=== PATIENT | male | born 1970 | race Hispanic/Latino ===

== ENCOUNTER 2017-06-30 05:56 | Day surgery (SDC) | payer BC ==
[2017-06-30] MEDS: Sodium Chloride 0.9% 1,000 ML IV SCH ×2 (00:15→16:45)
[2017-06-30] MEDS ORDERED: Thrombin 5000 UNITS/5 ML VIAL ONE (06:31)
[2017-06-30] MEDS ORDERED: Sodium Chloride 0.9% 10 ML ONE (06:31)
[2017-06-30] MEDS ORDERED: CEFAZOLIN/Water 2 GM/20 ML SYRINGE ONE (06:32)
[2017-06-30 06:53] LABS: PTT 30.2 SEC (22.9-36.1); Prothrombin Time 13.3 SEC (12.0-14.7)
[2017-06-30] MEDS ORDERED: Fentanyl 250 MCG/5 ML VIAL ONE (07:07)
[2017-06-30] MEDS ORDERED: Midazolam HCl 2 mg/2 ml Vial ONE (07:07)
[2017-06-30] MEDS ORDERED: Promethazine HCl 25 MG/ML VIAL ONE (07:07)
[2017-06-30] MEDS ORDERED: PHENYLEPHRINE-NS 100 MCG/ML 10 ML SYRINGE ONE (07:34)
[2017-06-30] MEDS ORDERED: Lidocaine 1% PF 5 ML VIAL ONE (07:34)
[2017-06-30] MEDS ORDERED: ePHEDrine/0.9% NaCl/PF SYRINGE 50 mg/10 ml ONE (07:34)
[2017-06-30] MEDS ORDERED: Ondansetron HCl/PF 4 MG/2 ML Vial ONE (07:34)
[2017-06-30] MEDS ORDERED: Glycopyrrolate 0.2 MG/ML 5 ML SYRINGE ONE (07:34)
[2017-06-30] MEDS ORDERED: Dexamethasone 20 MG/5 ML VIAL ONE (07:34)
[2017-06-30] MEDS ORDERED: Propofol 200 MG/20 ML VIAL ONE (07:34)
[2017-06-30] MEDS ORDERED: Acetaminophen/Codeine 30-300mg Tablet PO PRN (10:26)
[2017-06-30] MEDS ORDERED: Fleet Enema 133 ML BOT PR PRN (10:26)
[2017-06-30] MEDS ORDERED: traMADol HCl 50 MG TAB PO PRN (10:26)
[2017-06-30] MEDS ORDERED: Acetaminophen 325 MG TAB PO PRN (10:26)
[2017-06-30] MEDS ORDERED: Promethazine HCl 25 MG/ML VIAL IM PRN (10:26)
[2017-06-30] MEDS ORDERED: Morphine 2 MG/ML SYRINGE SLOW IVP PRN (10:26)
[2017-06-30] MEDS ORDERED: Milk Of Magnesia 30 ML UDCUP PO PRN (10:26)
[2017-06-30] MEDS ORDERED: Bisacodyl 10 MG SUPP PR PRN (10:26)
[2017-06-30] MEDS ORDERED: Mag-Al 1200 mg/1200 mg/30 ML UDCUP PO PRN (10:26)
[2017-06-30] MEDS ORDERED: Meperidine HCl/PF 25 MG/ML VIAL SLOW IVP PRN (10:36)
[2017-06-30] MEDS ORDERED: Ondansetron HCl/PF 4 MG/2 ML Vial IVP PRN (10:36)
[2017-06-30] MEDS ORDERED: Morphine Sulfate 2 MG/ML SYRINGE SLOW IVP PRN (10:36)
[2017-06-30] MEDS ORDERED: HYDROmorphone 2 MG/ML VIAL SLOW IVP PRN (10:36)
[2017-06-30] MEDS ORDERED: Promethazine HCl 25 MG/ML VIAL SLOW IVP PRN (10:36)
[2017-06-30] MEDS ORDERED: Fentanyl 100 MCG/2 ML VIAL ONE ×2 (10:40→10:44)
[2017-06-30] MEDS ORDERED: Labetalol HCl 100 MG/20 ML VIAL ONE (11:35)
--- NOTE | 2017-06-30 12:37 | OP ---
DATE OF PROCEDURE: 06/30/2017 OR: OR #12. WOUND TYPE: Type 1 wound. SURGEON: Sylvain Tate M.D. INSPECTOR PRECISION ASSEMBLY: Srikanth Berg PA-C. PREPROCEDURE DIAGNOSIS: Cervical stenosis with neck and arm pain with cervical radiculopathy. POSTPROCEDURE DIAGNOSES: Cervical stenosis with neck and arm pain with cervical radiculopathy. PROCEDURE: 1. Anterior C5-C6 and C6-C7 diskectomies for decompression of spinal cord and C6 and C7 nerve roots . 2. Preparation of endplates C5-C6, C6-C7 and placement of intervertebral spacer, C5-C6, C6-C7 packe d with local bone autograft obtained from same incision and allograft, C5-C6, C6-C7 for arthrodesis. 3. Anterior cervical plate and screw fixation C5, C6, C7. 4. Use of operative microscope for microdissection. PROCEDURE: After informed consent was obtained from the patient, the patient brought to OR 12. Pro per patient pause and identification was carried out. He was placed under excellent general endotra cheal anesthesia and positioned supine on the operating room table. All appropriate points were pad ded. Keeping the cervical spine in neutral position we identified the right anterior gonzalo that woul d allow for approach to the C5, C6, C7 segments. This area was sterilely cleansed, prepared, and dr josé antonio. Proper patient pause and identification was carried out. The wound was then opened with a co mbination of sharp, monopolar and blunt dissection, and proceeded lateral to the tracheoesophageal b undle and medial to the right carotid sheath. We identified the prevertebral layer of deep cervical fascia and exposed the C5, C6, C7 segments. Localization film confirmed our area of interest. Dis traction at C5-C6 then occurred. The microscope was moved in for microdissection. A diskectomy at C5-C6 was performed with excellent decompression of the common dural tube and the bilateral C6 nerve roots. The endplates were prepared and an interbody spacer was placed, packed with local bone auto graft obtained from same incision and allograft for arthrodesis and structural support. We then tur adwoa our attention to releasing the distraction at C5-C6 and distracted at C6-C7, diskectomy at C6-C7 was then performed with excellent decompression of the common dural tube and bilateral C7 nerve chata ts. We then placed interbody spacer of appropriate dimension packed with local bone autograft obtai adwoa from same incision and allograft at C6-C7. We were satisfied with our construct. The microscop e was then removed and anterior cervical plate and screw fixation at C5, C6, C7 then occurred along with final tightening. Copious irrigation occurred throughout as did maximizing hemostasis. The wo und was then closed in anatomic layers over a drain. The patient then emerged from anesthesia.
[2017-06-30 12:56] VITALS: BMI 25.8
[2017-06-30] MEDS: HYDROcodone/Acetaminophen 7.5/325 mg Tablet PO PRN ×3 (13:46→21:57)
[2017-06-30] MEDS: CEFAZOLIN/Water 2 GM/20 ML SYRINGE SLOW IVP SCH ×2 (13:47→21:26)
[2017-06-30] MEDS ORDERED: FLU VACC QS2017-18 36 mo. & older 0.5 ML SYRINGE IM ONE (21:00)
[2017-06-30] MEDS: tiZANidine HCl 4 MG TAB PO PRN (21:57)
[2017-07-01] MEDS: HYDROcodone/Acetaminophen 7.5/325 mg Tablet PO PRN ×2 (06:05→09:43)
[2017-07-01] MEDS: tiZANidine HCl 4 MG TAB PO PRN (06:05)
[2017-07-01] MEDS: CEFAZOLIN/Water 2 GM/20 ML SYRINGE SLOW IVP SCH (06:05)
[2017-07-01 08:51] VITALS: BP 128/84; TEMP 98.5
--- NOTE | 2017-07-01 08:57 | PRG ---
DATE OF SERVICE: 07/01/2017 Mr. Lara is doing well postoperative day 1 from C5-C7 ACDF. He states his upper extremities fee l much better compared to before surgery. His drain output has been 40 mL and we will remove his dr jorgensen. Neurologically, he is doing very well, went over both intra and postoperative issues and follo wup is arranged. He may be dismissed.
--- NOTE | 2017-07-03 15:52 | EKG ---
Test Reason : PREOP Blood Pressure : / mmHG Vent. Rate : 068 BPM Atrial Rate : 068 BPM P-R Int : 122 ms QRS Dur : 084 ms QT Int : 396 ms P-R-T Axes : 055 024 029 degrees QTc Int : 421 ms Normal sinus rhythm Normal ECG When compared with ECG of 21-JAN-2017 10:27, No significant change was found Confirmed by DR. Qing QUACH ([id number]) on 07/03/2017 3:51:48 PM Referred By: HERMINIA Confirmed By:DR. Qing QUACH
== END 2017-07-01 12:15 | disposition home or self-care (01) ==
LOC: SDC 05:56 → SURG B 10:24 → SDC 07-01 12:15
PROVIDERS: ATTEND Surgery
PROC: 0RG2070 Fusion of 2 or more Cervical Vertebral Joints with Autologous Tissue Substitute, Anterior Approach, Anterior Column, Open Approach (ICD-10-PCS; principal; 2017-07-01)
DX: M48.02 Spinal stenosis, cervical region (principal); M54.12 Radiculopathy, cervical region
CPT/HCPCS: 36415; 76001; 85610; 85730; 93005; 93010; 96374; A4216; C1713; J1100; J2001; J2250; J2270; J2405; J2550; J2704; J3010; J3490

== ENCOUNTER 2017-08-18 15:43 | Outpatient (CLI) | payer BC ==
--- NOTE | 2017-08-18 17:01 | RAD ---
CERVICAL SPINE FOUR VIEWS: 08/18/17 HISTORY: Neck pain. Prior surgery. FINDINGS: Anterior fixation plate is in place at the C5-6-7 levels. No perihardware lucency is visible. Metalli c markers associated with interbody fusion material are within the confines of the disc spaces at the postoperative level. Cervicothoracic junction is intact. Disc space narrowing and osteophytosis are most pronounced at the C4-5 level. IMPRESSION: Degenerative and postoperative changes of the cervical spine. POS: PAT
== END 2017-08-18 15:44 | disposition home or self-care (01) ==
LOC: TBSIIMAG 15:43
PROVIDERS: ATTEND Surgery
DX: M50.20 Other cervical disc displacement, unspecified cervical region (principal); M47.812 Spondylosis without myelopathy or radiculopathy, cervical region; Z98.890 Other specified postprocedural states
CPT/HCPCS: 72040

== ENCOUNTER 2018-04-29 17:00 | Outpatient (CLI) | payer BC | END 2018-04-29 17:01 | disposition home or self-care (01) | LOC: SLEEPLAB 17:00 | PROVIDERS: ATTEND Family Medicine | DX: G47.33 Obstructive sleep apnea (adult) (pediatric) (principal); R06.83 Snoring; R51 Headache; I10 Essential (primary) hypertension; K21.9 Gastro-esophageal reflux disease without esophagitis | CPT/HCPCS: 95806 ==

== ENCOUNTER 2018-12-03 09:02 | Outpatient (CLI) | payer BC ==
--- NOTE | 2018-12-03 09:56 | CT ---
FExam: CT cervical spine without contrast HISTORY: Radiculopathy. Neck pain. COMPARISON: None FINDINGS: No craniocervical dissociation. Appropriate alignment of the lateral masses of C1 and C2. Intact odon toid process Appropriate alignment of the facets. Soft tissue neck structures: No mass, lymphadenopathy or hematoma. No prevertebral soft tissue swelli ng. Upper mediastinum and lung apices: Unremarkable Vertebral bodies: Cervical spine vertebral body height is maintained. No fracture. Fusion hardware at C5, C6 and C7 with no evidence of perihardware lucency. Disc prosthesis at C5-C6 and C6-C7. Straightening of normal cervical lordosis may be due to cervical fusion. Limited evaluation the contents of the central spinal canal and neural foramina due to technique C2-C3: No high-grade central canal stenosis. Right neural foramen is patent. Mild left foraminal narr owing due to uncovertebral hypertrophy C3-C4: Broad-based disc osteophyte complex with mild central canal stenosis. Mild bilateral foraminal narrowing due to uncovertebral hypertrophy C4-C5: Broad-based disc osteophyte complex without significant central canal stenosis. Mild right for aminal narrowing due to uncovertebral hypertrophy C5-C6: Broad-based disc osteophyte ridge without significant central canal stenosis. Mild to moderat e bilateral foraminal narrowing due to uncovertebral hypertrophy C6-C7: Broad-based disc osteophyte ridge without significant canal stenosis. Moderate to severe righ t and moderate left foraminal narrowing due to uncovertebral hypertrophy C7-T1: No high-grade central canal stenosis or high-grade foraminal narrowing. IMPRESSION: 1. Cervical fusion with anterior fusion plate at C5, C6 and C7. No perihardware lucency. Disc prosth esis at C5-C6 and C6-C7. 2. No evidence of high-grade central canal stenosis. Multilevel neural foraminal narrowing as detail ed above. Transcribed Date/Time: 12/03/2018 10:14 AM
--- NOTE | 2018-12-03 11:32 | MRI ---
FCervical spine MRI with and without contrast: 12/03/2018 COMPARISON: None available HISTORY: Neck pain and radiculopathy TECHNIQUE: Multiplanar multisequence MR imaging of the cervical spine provided with and without contr ast FINDINGS: The sagittal STIR imaging demonstrates no focal area of osseous marrow edema. There is ante rior discectomy and fusion hardware at C5-C6/C6-7. C2-3: Mild left facet hypertrophy. No central canal or neural foraminal stenosis. C3-4: Mild disc space narrowing and anterior osteophyte formation. Mild disc bulge with partial effac ement of the ventral thecal sac and mild central canal stenosis. Mild bilateral facet and uncovertebr al osteophyte formation. Mild bilateral neural foraminal stenosis. C4-5: Disc space narrowing, disc desiccation, and anterior osteophyte formation. Mild posterior osteo phyte formation. Mild bilateral facet and uncovertebral osteophyte formation. Moderate central canal stenosis. Moderate right and mild left neural foraminal stenosis. C5-6: No significant central canal or neural foraminal stenosis. Mild posterior osteophyte and bilate ral uncovertebral osteophyte. C6-7: Bilateral uncovertebral osteophyte formation, right greater than left. Probable moderate right associated neural foraminal stenosis and mild left neural foraminal stenosis. No significant central canal stenosis C7-T1: Mild bilateral facet hypertrophy with mild bilateral neural foraminal stenosis. No significant central canal stenosis. Postcontrast imaging demonstrates no abnormal enhancement involving the contents of the thecal sac, t he intervertebral disks, or the imaged osseous structures. IMPRESSION: Multilevel postoperative and degenerative change within the cervical spine as detailed ab ove.
--- NOTE | 2018-12-03 11:49 | RAD ---
FExam: 5 views cervical spine HISTORY: Neck pain. Radiculopathy. Previous cervical fusion FINDINGS: On the open-mouth projection, lateral masses of C1 and C2 articulate appropriately. Intact odontoid process In the AP projection, mild facet hypertrophy is noted. No malalignment Predental space is normal on the lateral projection. No prevertebral soft tissue swelling Cervical fusion plate with transvertebral body screws at C5, C6 and C7. Disc prosthesis at C5-C6 and C6-C7. No perihardware lucency. Straightening of normal cervical lordosis in neutral position, presumed to be due to fusion. No malal ignment upon extension or flexion Mild degenerative change at C3-C4 and mild to moderate degenerative change at C4-C5. IMPRESSION: Cervical fusion without evidence of complication or loosening. Transcribed Date/Time: 12/03/2018 11:54 AM
--- NOTE | 2018-12-03 11:55 | MRI ---
MRI LUMBAR SPINE WITH AND WITHOUT CONTRAST: COMPARISON: 11/10/2016. HISTORY: Intervertebral disk disorder, lumbosacral. Low back pain x 4 months. Pain radiating down both legs. Weakness in both legs. TECHNIQUE: MRI of the lumbar spine is performed without and without intravenous Gadolinium administration. Mult isequential, multiplanar imaging is performed. FINDINGS: Appropriate T1 marrow signal intensity of lumbar vertebrae. Lumbar spine vertebral body height is ma intained. There is no fracture. No significant STIR hyperintensity to suggest vertebral body edema. No abnormal enhancement of the vertebral bodies. There is no abnormal enhancement within the thecal sac including the cauda equina and conus medullari s. Conus medullaris terminates at the upper aspect of L1. Symmetric signal intensity of the paraspinal muscles. Appropriate signal intensity of the visualized solid organs. A 6 mm cyst in the right renal cortex. T12-L1: No significant central canal stenosis or foraminal narrowing. L1-L2: No significant central canal stenosis or foraminal narrowing. L2-L3: No significant central canal stenosis or foraminal narrowing. L3-L4: No significant central canal stenosis or foraminal narrowing. L4-L5: No significant central canal stenosis. Neural foramen are patent. L5-S1: Mild loss of disk space height. Posterior laminectomy defects. There is a combination of di sk material and scar tissue in the left subarticular zone. Disk and scar tissue abut does not obscur e the traversing left S1 nerve root. The degree of narrowing of the left subarticular zone has incre ased since the previous examination. No significant stenosis of the thecal sac. Scar tissue does pa rtially encompass the traversing left S1 nerve root. Right subarticular zone is unremarkable. Moder ate bilateral foraminal narrowing. IMPRESSION: 1. Disk and scar tissue in the left subarticular zone causing narrowing of the left subarticular zon e. There is mass effect upon the traversing left S1 nerve root. Disk material also partially encomp asses the left S1 nerve root. 2. Moderate bilateral foraminal narrowing at L5-S1. POS: OFF
[2018-12-03] MEDS ORDERED: Gadobenate Dimeglumine 529 MG/1 ML (20ML VIAL) ONE (15:13)
== END 2018-12-03 09:03 | disposition home or self-care (01) ==
LOC: BICCT 09:02
PROVIDERS: ATTEND Surgery
DX: M51.17 Intervertebral disc disorders with radiculopathy, lumbosacral region (principal); M47.22 Other spondylosis with radiculopathy, cervical region; M48.02 Spinal stenosis, cervical region; M48.061 Spinal stenosis, lumbar region without neurogenic claudication; M48.07 Spinal stenosis, lumbosacral region; Z98.1 Arthrodesis status
CPT/HCPCS: 72050; 72125; 72156; 72158; A9577

== ENCOUNTER 2019-01-11 05:59 | Outpatient (CLI) | payer BC ==
[2019-01-11 10:40] LABS: Hemoglobin 15.4 g/dL (14.0-18.0); Mean Corpuscular HGB CONC 34.1 g/dL (32.0-36.0); Mean Corpuscular Volume 90.9 fL (78.0-98.0); Mean Platelet Volume 7.6 fL (7.4-10.4); Platelet Count 287 thou/uL (130-400); RBC Distribution Width 11.7 % (11.5-14.5); Red Blood Cell (RBC) Count 4.97 mill/uL (4.70-6.10); White Blood Cell (WBC) Count 5.4 thou/uL (4.8-10.8)
[2019-01-11 10:47] LABS: Prothrombin Time 12.8 SEC (12.0-14.7)
[2019-01-11 11:00] LABS: Anion Gap 14 mmol/L (10-20); BUN (Urea Nitrogen) 9 mg/dL (8.9-20.6); Calc. Creatinine Clearance 0 mL/min (70-130); Calcium 10.6 mg/dL (7.8-10.44); Carbon Dioxide 30 mmol/L (22-29); Chloride 98 mmol/L (98-107); Estimated GFR-MDRD Greater than 90; Glucose 111 mg/dL (70-105); Potassium 4.3 mmol/L (3.5-5.1); Sodium 138 mmol/L (136-145)
--- NOTE | 2019-01-11 16:55 | EKG ---
Test Reason : Blood Pressure : / mmHG Vent. Rate : 077 BPM Atrial Rate : 077 BPM P-R Int : 134 ms QRS Dur : 084 ms QT Int : 396 ms P-R-T Axes : 067 044 024 degrees QTc Int : 448 ms Normal sinus rhythm Normal ECG When compared with ECG of 30-JUN-2017 06:48, No significant change was found Confirmed by DR. Farshad HATHAWAY ([id number]) on 01/11/2019 4:54:53 PM Referred By: HERMINIA Confirmed By:DR. Farshad HATHAWAY
== END 2019-01-11 06:00 | disposition home or self-care (01) ==
LOC: LABBT 05:59
PROVIDERS: ATTEND Surgery
DX: Z01.818 Encounter for other preprocedural examination (principal); M48.061 Spinal stenosis, lumbar region without neurogenic claudication; M48.02 Spinal stenosis, cervical region
CPT/HCPCS: 80048; 85027; 85610; 85730; 93005; 93010

== ENCOUNTER 2019-01-18 05:59 | Day surgery (SDC) | payer BC ==
[2019-01-11 09:45] VITALS: BMI 25.0
[2019-01-18] MEDS ORDERED: Bacitracin Zinc Ointment 30 gm TUBE ONE (06:24)
[2019-01-18] MEDS ORDERED: Sodium Chloride 0.9% 10 ML ONE ×2 (06:24→06:39)
[2019-01-18] MEDS ORDERED: Thrombin 5000 UNITS/5 ML VIAL ONE (06:24)
[2019-01-18] MEDS ORDERED: Fentanyl 250 MCG/5 ML VIAL ONE (06:59)
[2019-01-18] MEDS ORDERED: Fentanyl 100 MCG/2 ML VIAL ONE ×2 (11:22→13:06)
[2019-01-18] MEDS ORDERED: PACU-Morphine 4MG/ML VIAL SLOW IVP PRN (12:00)
[2019-01-18] MEDS ORDERED: Morphine Sulfate 2 MG/ML SYRINGE SLOW IVP PRN (12:00)
[2019-01-18] MEDS ORDERED: Promethazine HCl 25 MG/ML VIAL SLOW IVP PRN (12:00)
[2019-01-18] MEDS ORDERED: Ondansetron HCl/PF 4 MG/2 ML Vial IVP PRN (12:00)
[2019-01-18] MEDS ORDERED: Promethazine HCl 25 MG/ML VIAL IM PRN (12:00)
[2019-01-18] MEDS ORDERED: Meperidine HCl/PF 25 MG/ML VIAL SLOW IVP PRN (12:00)
[2019-01-18] MEDS ORDERED: HYDROmorphone 2 MG/ML VIAL SLOW IVP PRN (12:00)
[2019-01-18] MEDS ORDERED: Promethazine HCl 25 MG/ML VIAL IM/IV PRN (12:33)
[2019-01-18] MEDS ORDERED: Acetaminophen/Codeine 30-300mg Tablet PO PRN (12:33)
[2019-01-18] MEDS ORDERED: Acetaminophen 325 MG TAB PO PRN (12:33)
[2019-01-18] MEDS ORDERED: Fleet Enema 133 ML BOT PR PRN (12:33)
[2019-01-18] MEDS ORDERED: Milk Of Magnesia 30 ML UDCUP PO PRN (12:33)
[2019-01-18] MEDS ORDERED: Mag-Al 1200 mg/1200 mg/30 ML UDCUP PO PRN (12:33)
[2019-01-18] MEDS ORDERED: traMADol HCl 50 MG TAB PO PRN (12:33)
[2019-01-18] MEDS ORDERED: Bisacodyl 10 MG SUPP PR PRN (12:33)
[2019-01-18] MEDS ORDERED: PHENYLEPHRINE-NS 100 MCG/ML 10 ML SYRINGE ONE (14:09)
[2019-01-18] MEDS ORDERED: PROPOFOL 200 MG/20 ML VIAL ONE (14:09)
[2019-01-18] MEDS ORDERED: Metoclopramide HCl 10 MG/2 ML VIAL ONE (14:09)
[2019-01-18] MEDS ORDERED: Rocuronium Bromide 10 MG/ML (10ML VIAL) ONE (14:09)
[2019-01-18] MEDS ORDERED: Ondansetron PF 4 MG/2 ML Vial ONE (14:09)
[2019-01-18] MEDS ORDERED: Lidocaine 1% PF 5 ML VIAL ONE (14:09)
[2019-01-18] MEDS ORDERED: Dexamethasone 20 MG/5 ML VIAL ONE (14:09)
[2019-01-18] MEDS ORDERED: Glycopyrrolate 0.2 MG/ML 5 ML SYRINGE ONE (14:09)
[2019-01-18] MEDS ORDERED: CEFAZOLIN 2 GM in Premix Bag 1 BAG IVPB SCH (15:00)
[2019-01-18] MEDS: Morphine 2 MG/ML SYRINGE SLOW IVP PRN ×3 (15:06→22:12)
[2019-01-18] MEDS: tiZANidine HCl 4 MG TAB PO PRN ×2 (16:31→22:12)
[2019-01-18] MEDS: Sodium Chloride 0.9% 1,000 ML IV SCH (16:34)
[2019-01-18] MEDS: HYDROcodone/Acetaminophen 7.5/325 mg Tablet PO PRN (19:36)
[2019-01-18] MEDS: CEFAZOLIN 2 GM in Premix Bag 1 BAG IVPB SCH (22:12)
[2019-01-19] MEDS: Sodium Chloride 0.9% 1,000 ML IV SCH (04:50)
[2019-01-19] MEDS: CEFAZOLIN 2 GM in Premix Bag 1 BAG IVPB SCH (05:08)
[2019-01-19] MEDS: HYDROcodone/Acetaminophen 7.5/325 mg Tablet PO PRN ×2 (05:16→10:07)
[2019-01-19 07:45] VITALS: BP 136/78; TEMP 99.3
[2019-01-19] MEDS ORDERED: DULoxetine 60 MG CAP PO SCH (09:00)
--- NOTE | 2019-01-19 09:58 | PRG ---
DATE OF SERVICE: 01/19/2019 Mr. Lara is postoperative day 1 from cervical and lumbar decompression. He notices that his right upper extremity and bilateral lower extremity pain has significantly improved compared to before surgery. He still has significant weakness in the right second digit extensor mechanism. However, he feels already that it is perhaps improved. We will continue to work on this on an outpatient basis. He may be dismissed, and we went over do's and don'ts. Job ID: [id number]
[2019-01-19] MEDS: tiZANidine HCl 4 MG TAB PO PRN (10:07)
--- NOTE | 2019-01-19 10:39 | OP ---
DATE OF PROCEDURE: 01/18/2019 LOCATION: OR 12. WOUND CLASSIFICATION: Type 1 wound. REFRACTORY WORKER: Srikanth Berg PA-C PREPROCEDURE DIAGNOSES: Right C8 radiculopathy with stenosis, right C8 neuroforamen with prior history of C5 through C7 anterior diskectomy and fusion, bilateral S1 left greater than right radiculopathy with recurrent lumbar stenosis and disk extrusion left greater than right, history of L5-S1 surgery with low back and left greater than right lower extremity pain. POSTPROCEDURE DIAGNOSES: Right C8 radiculopathy with stenosis, right C8 neuroforamen with prior history of C5 through C7 anterior diskectomy and fusion, bilateral S1 left greater than right radiculopathy with recurrent lumbar stenosis and disk extrusion, left greater than right, history of L5-S1 surgery with low back and left greater than right lower extremity pain. PROCEDURES PERFORMED: 1. Right C7-T1 hemilaminotomy and foraminotomy over the right C8 nerve root for decompression of the right C8 nerve root with exploration of disk material. 2. Bilateral revision L5-S1 hemilaminotomy and foraminotomy with left-sided L5-S1 revision diskectomy. 3. Use of operative microscope for microdissection. DESCRIPTION OF PROCEDURE: After informed consent was obtained from the patient, the patient was brought to the OR. Proper patient, pause, and identification were carried out. He was placed under excellent endotracheal anesthesia and the Quintero Wero was secured. He was positioned prone on the OR table. All appropriate points were padded. We identified the C7-T1 segment. A linear gonzalo was made over this region. This area was sterilely cleansed, prepared, and draped along with the prior L5-S1 wound was identified, drawn out and sterilely cleansed, prepared, and draped. Proper patient, pause, and identification were carried out in one general anesthesia procedure. I would perform two-stage right C7-T1 hemilaminotomy, foraminotomy of the right C8 nerve root, and bilateral L5-S1 hemilaminotomy and foraminotomies with left-sided diskectomy with the use of the operative microscope. We started with the right C7-T1 segment. We proceeded with dissection utilizing sharp monopolar and blunt dissection and proceeded to expose the right C7-T1 segment. Retractor was placed. Localization film confirmed our area of interest, we then performed a right C8 foraminotomy and right C7-T1 hemilaminotomy with good decompression of the right C8 nerve root. I did explore the disk space material and there was no extruded disk fragment that needed to be removed. We had excellent decompression of the right C8 nerve root. There were certainly areas of erythema over the right C8 nerve root that indicated to me significant compression and following removing all of the compression in this region, the root certainly appeared to be more anatomic in its configuration and not has attenuated. We copiously irrigated this region and the wound was then hemostased. We then turned our attention to the L5-S1 revision area. The wound was opened through the prior incision and we proceeded to expose the bilateral L5-S1 prior hemilaminotomy regions. Localization film confirmed area of interest. We then did revision bilateral hemilaminotomies at L5-S1 and proceeded over the traversing left S1 nerve root shoulder and removed disk material. There was quite exuberant scar tissue bilaterally. We had excellent decompression of the bilateral L5 and bilateral S1 segments and copious irrigation then occurred following excellent decompression of the bilateral S1 nerve roots. There was no spinal fluid leak. We were satisfied with our decompression. Hemostasis was maximized. The wound was then closed in the lumbar region following copious irrigation and maximally hemostasis and vancomycin powder and we also closed the cervical wound following maximal hemostasis and irrigation. The patient was then emerged from anesthesia. Job ID: [id number]
== END 2019-01-19 12:15 | disposition home or self-care (01) ==
LOC: SDC 05:59 → SURG A 12:33 → SDC 01-19 12:15
PROVIDERS: ATTEND Surgery
PROC: 0RT30ZZ Resection of Cervical Vertebral Disc, Open Approach (ICD-10-PCS; principal; 2019-01-19)
PROC: 0ST20ZZ Resection of Lumbar Vertebral Disc, Open Approach (ICD-10-PCS; principal; 2019-01-19)
DX: M48.061 Spinal stenosis, lumbar region without neurogenic claudication (principal); M48.02 Spinal stenosis, cervical region; M54.12 Radiculopathy, cervical region; M54.18 Radiculopathy, sacral and sacrococcygeal region
CPT/HCPCS: 76000; J0131; J0690; J1100; J2001; J2270; J2405; J2704; J2765; J3010; J3370; J3490

== ENCOUNTER 2019-04-15 10:05 | Outpatient (CLI) | payer BC ==
[~2019-04-15 10:05] MED LIST: Gadobenate Dimeglumine 529 MG/1 ML (20ML VIAL) ONE
--- NOTE | 2019-04-15 15:09 | MRI ---
MRI CERVICAL SPINE WITH AND WITHOUT CONTRAST: 04/15/19 INDICATIONS: Cervical radiculopathy. Comparison made to MRI cervical spine dated 12/03/18. Postoperative changes are again noted. Anterior plate and screws transfix C5, C6 and C7 with interbod y implants at these levels and interbody fusion. These postoperative changes were present on the prio r exam. Loss of disc space and posterior spondylosis is noted at C3-4 and C4-5, similar to the prior exam. Th tanisha changes impinge on the anterior cord at both of these levels and there is foraminal stenosis at t hese levels due to facet and uncinate hypertrophy as noted on prior exam. Mild spondylosis throughout the fused cervical spine from C5 through C7; however, no significant cord impingement at these levels. There is a new finding seen posteriorly on the right at C7-T1 which appears to represent new laminect eric change on the right and enhancement and signal abnormality in the posterior paraspinous musculatu re and extending into the subcutaneous tissues to the skin. These changes would suggest recent surgi pablo procedure at this location. There are diffuse enhancement in the posterior tissues on the right e xtending from the C5 level through the T1 level. The cervical cord signal is normal with no evidence of myelomalacia. IMPRESSION: 1. There are new findings posteriorly on the right which appear to be localized at C7-T1 and sug gests recent surgical procedure with edema and enhancement within the paraspinous tissues and subcuta neous tissues extending to the skin surface as described above. Recommend clinical correlation regard ing recent surgical procedure at this location. 2. The spondylitic changes at C3-4 and C4-5 do not appear significantly changed. The postoperati ve fusion changes at C5,C6 and C7 appear stable as described above. POS: TPC
--- NOTE | 2019-04-15 16:02 | MRI ---
MRI OF THE CHEST WITH AND WITHOUT CONTRAST: 04/15/19 INDICATION: Right sided brachial plexopathy and right upper extremity pain. The patient is having right index fin sundeep and little finger numbness with neck pain and shoulder pain. TECHNIQUE: Multiplanar and multisequence MR images were obtained in the chest with and without contrast utilizin g a brachial plexopathy protocol. 14 mL of Multihance was utilized for the examination. FINDINGS: No signal abnormality or abnormal enhancement is seen along the course of the brachial plexus. No lym phadenopathy or right apical lung mass is demonstrated. There is postsurgical change of an ACDF at C5 -C7. There is also postsurgical changes involving the right posterolateral aspect of the cervicothora cic junction near the C7 level. There is also postsurgical change involving the right shoulder consis tent with a right biceps tenodesis. No muscular atrophy is evident. No lymphadenopathy is noted. IMPRESSION: Normal exam. POS: OFF
== END 2019-04-15 10:06 | disposition home or self-care (01) ==
LOC: SCSMRI 10:05
PROVIDERS: ATTEND Specialist
DX: G54.0 Brachial plexus disorders (principal); M47.22 Other spondylosis with radiculopathy, cervical region; Z98.1 Arthrodesis status
CPT/HCPCS: 71552; 72156

== ENCOUNTER 2019-05-11 13:38 | Inpatient (IN) | payer BC ==
[2019-05-11] MEDS ORDERED: traMADol HCl 50 MG TAB PO PRN (15:45)
[2019-05-11] MEDS ORDERED: Acetaminophen 325 MG TAB PO PRN (15:45)
[2019-05-11 15:59] VITALS: BMI 25.9
[2019-05-11] MEDS: HYDROcodone/Acetaminophen 5/325 mg Tablet PO PRN (16:35)
[2019-05-11 16:41] LABS: #Eosinphils 0.1 thou/uL (0.0-0.7); #Lymphocytes 2.4 thou/uL (1.20-3.40); #Monocytes 0.7 thou/uL (0.11-0.59); %Basophils 0.4 % (0.0-1.0); %Eosinophils 1.2 % (0.0-10.0); %Lymphocytes 33.2 % (21.0-51.0); %Monocytes 9.1 % (0.0-10.0); Hemoglobin 14.5 g/dL (14.0-18.0); Mean Corpuscular HGB CONC 33.3 g/dL (32.0-36.0); Mean Corpuscular Hemoglobin 29.8 pg (27.0-31.0); Mean Corpuscular Volume 89.5 fL (78.0-98.0); Platelet Count 354 thou/uL (130-400); RBC Distribution Width 12.1 % (11.5-14.5); Red Blood Cell (RBC) Count 4.86 mill/uL (4.70-6.10); White Blood Cell (WBC) Count 7.1 thou/uL (4.8-10.8)
[2019-05-11 16:48] LABS: PTT 30.4 SEC (22.9-36.1); Prothrombin Time 12.7 SEC (12.0-14.7)
[2019-05-11 17:02] LABS: Anion Gap 16 mmol/L (10-20); BUN (Urea Nitrogen) 13 mg/dL (8.9-20.6); Calc. Creatinine Clearance 129 mL/min (70-130); Calcium 9.8 mg/dL (7.8-10.44); Carbon Dioxide 22 mmol/L (22-29); Chloride 104 mmol/L (98-107); Estimated GFR-MDRD Greater than 90; Glucose 103 mg/dL (70-105); Potassium 3.8 mmol/L (3.5-5.1); Sodium 138 mmol/L (136-145)
[2019-05-11] MEDS: Sodium Chloride 0.9% 1,000 ML IV SCH (18:27)
[2019-05-12] MEDS ORDERED: Sodium Chloride 0.9% 10 ML ONE (06:33)
[2019-05-12] MEDS ORDERED: Thrombin 5000 UNITS/5 ML VIAL ONE (06:33)
[2019-05-12] MEDS ORDERED: Gelfilm 1 EA Packet ONE (06:33)
[2019-05-12] MEDS ORDERED: Bacitracin Zinc Ointment 30 gm TUBE ONE (06:39)
[2019-05-12] MEDS ORDERED: Fentanyl 100 MCG/2 ML VIAL ONE ×4 (07:06→14:42)
[2019-05-12] MEDS ORDERED: HYDROmorphone 2 MG/ML VIAL ONE ×2 (08:28→12:22)
[2019-05-12] MEDS ORDERED: ePHEDrine 50 MG/ML VIAL ONE (13:40)
[2019-05-12] MEDS ORDERED: Vecuronium 10 MG VIAL ONE (13:40)
[2019-05-12] MEDS ORDERED: Ondansetron PF 4 MG/2 ML Vial ONE (13:40)
[2019-05-12] MEDS ORDERED: Rocuronium Bromide 10 MG/ML (10ML VIAL) ONE (13:40)
[2019-05-12] MEDS ORDERED: PHENYLEPHRINE-NS 100 MCG/ML 10 ML SYRINGE ONE (13:40)
[2019-05-12] MEDS ORDERED: Lidocaine 1% PF 5 ML VIAL ONE (13:40)
[2019-05-12] MEDS ORDERED: Glycopyrrolate 0.2 MG/ML 5 ML SYRINGE ONE (13:40)
[2019-05-12] MEDS ORDERED: PROPOFOL 200 MG/20 ML VIAL ONE (13:40)
[2019-05-12] MEDS ORDERED: Dexamethasone 20 MG/5 ML VIAL ONE (13:40)
[2019-05-12] MEDS ORDERED: Morphine Sulfate 2 MG/ML SYRINGE SLOW IVP PRN (13:41)
[2019-05-12] MEDS ORDERED: HYDROmorphone 2 MG/ML VIAL SLOW IVP PRN (13:41)
[2019-05-12] MEDS ORDERED: Promethazine HCl 25 MG/ML VIAL SLOW IVP PRN (13:41)
[2019-05-12] MEDS ORDERED: Meperidine HCl/PF 25 MG/ML VIAL SLOW IVP PRN (13:41)
[2019-05-12] MEDS ORDERED: Promethazine HCl 25 MG/ML VIAL IM PRN (13:41)
[2019-05-12] MEDS ORDERED: Ondansetron HCl/PF 4 MG/2 ML Vial IVP PRN (13:41)
[2019-05-12] MEDS ORDERED: PACU-Morphine 4MG/ML VIAL SLOW IVP PRN (13:41)
[2019-05-12] MEDS ORDERED: Acetaminophen 1,000 MG in Premix Bag 1 BAG IVPB SCH (13:45)
[2019-05-12] MEDS ORDERED: Meperidine HCl/PF 25 MG/ML VIAL ONE (13:53)
[2019-05-12] MEDS ORDERED: tiZANidine HCl 4 MG TAB ONE (14:22)
[2019-05-12] MEDS: Ondansetron PF 4 MG/2 ML Vial SLOW IVP PRN ×2 (15:35→21:03)
[2019-05-12] MEDS: CEFAZOLIN 2 GM in Premix Bag 1 BAG IVPB SCH ×2 (15:38→23:47)
[2019-05-12] MEDS: Sodium Chloride 0.9% 1,000 ML IV SCH (15:40)
[2019-05-12] MEDS: tiZANidine HCl 4 MG TAB PO PRN (17:00)
[2019-05-12] MEDS: Morphine 2 MG/ML SYRINGE SLOW IVP PRN ×3 (17:00→23:46)
--- NOTE | 2019-05-12 17:06 | EKG ---
Test Reason : Blood Pressure : / mmHG Vent. Rate : 071 BPM Atrial Rate : 071 BPM P-R Int : 128 ms QRS Dur : 086 ms QT Int : 406 ms P-R-T Axes : 050 001 026 degrees QTc Int : 441 ms Normal sinus rhythm Possible Inferior infarct , age undetermined Abnormal ECG When compared with ECG of 11-JAN-2019 10:03, No significant change was found Confirmed by DR. Farshad HATHAWAY (3) on 05/12/2019 5:05:47 PM Referred By: CHAN Confirmed By:DR. Farshad HATHAWAY
[2019-05-12] MEDS: HYDROcodone/Acetaminophen 5/325 mg Tablet PO PRN (22:38)
[2019-05-13] MEDS: tiZANidine HCl 4 MG TAB PO PRN ×2 (01:05→09:24)
[2019-05-13] MEDS: Morphine 2 MG/ML SYRINGE SLOW IVP PRN ×2 (04:00→09:23)
[2019-05-13] MEDS: HYDROcodone/Acetaminophen 5/325 mg Tablet PO PRN (05:22)
[2019-05-13] MEDS: CEFAZOLIN 2 GM in Premix Bag 1 BAG IVPB SCH (08:02)
[2019-05-13 08:10] VITALS: BP 133/84; TEMP 98.7
[2019-05-13] MEDS ORDERED: DULoxetine 60 MG CAP PO SCH (09:00)
--- NOTE | 2019-05-13 10:13 | PRG ---
DATE OF SERVICE: 05/13/2019 Mr. Lara is postoperative day #1 from C5-T2 instrumented fusion and complete facetectomy of the right C6-C7 and right C7-T1 facet complexes and removal of the right C7 pedicle with complete skeletonization of the right C7 and right C8 nerve roots. I also assessed the fusion status posteriorly at C5-C7 as he had a prior anterior surgery with me. This morning, he has had resolution in his right C7 and right C8 pain and paresthesias. He has even had some improvement in his hand intrinsic function with opposition, but remains still quite weak. However, I am very optimistic about his prognosis. We will plan to dismiss him as he has met criteria. I am very optimistic again and pleased. Job ID: [id number]
--- NOTE | 2019-05-13 12:50 | OP ---
DATE OF PROCEDURE: 05/12/2019 LEAD SETTER: Srikanth Berg PA-C PREPROCEDURE DIAGNOSES: Persistent sensory and motor right C7 and right C8 radiculopathy with increased neck and right arm pain and right C7 and C8 myotomal weakness, need for amish of neurologic function and improvement of pain. POSTPROCEDURE DIAGNOSES: Persistent sensory and motor right C7 and right C8 radiculopathy with increased neck and right arm pain and right C7 and C8 myotomal weakness, need for amish of neurologic function and improvement of pain. PROCEDURES PERFORMED: 1. Right C6-C7 hemilaminotomy, complete facetectomy with skeletonization of the right C7 nerve root and removal of the right C7 pedicle. 2. Revision right C7-T1 hemilaminotomy, complete facetectomy, and further complete removal of the right C7 pedicle and skeletonization of the right C8 nerve root. 3. Assessment of fusion posteriorly, C5, C6, and C7. 4. Placement of screw junior fixation, bilateral C5, left C6, left C7, bilateral T1, bilateral T2 with screw junior fixation. 5. Posterolateral arthrodesis, C5, C6, C7, T1, and T2 for augmentation of fusion process and stabilization. DESCRIPTION OF PROCEDURE: After informed consent was obtained from the patient, the patient was brought to the OR. Proper patient, pause, and identification were carried out. He was placed under excellent general endotracheal anesthesia and the Quintero Wero was secured to his head. He was kept in cervical neutrality and positioned prone on the OR table and all appropriate points were padded. We identified the prior midline cervical hemilaminotomy wound from his prior right C7-T1 decompression and this wound was extended cephalad and caudal following sterile cleansing, preparation and draping, and proper patient, pause, and identification again. The wound was then again continued open and the bilateral C5, bilateral C6, bilateral C7, bilateral T1, and bilateral T2 segments were all exposed in their entirety including out into the lateral masses and transverse processes. We identified the prior right C7-T1 hemilaminotomy, keyhole foraminotomy defect in this area was protected. We then did complete facetectomies on the right side at C6-C7 via hemilaminotomy right C6-C7 approach and complete removal of the right C7 pedicle. We did the same thing at the right C7-T1 in a revision hemilaminotomy fashion with complete removal of the joint at the right C7-T1, exposure of the right T1 pedicle and further removal of the right C7 pedicle. We completely skeletonized the right C8 nerve root and removed exuberant scar tissue. I then placed bilateral screws at C5, the left C6, left C7, bilateral T1, and bilateral T2 using gross and fluoroscopic visualization of the anatomy. Rods were placed and final tightening occurred. I had assessed the C5 to C7 segments to assess for fusion as well posteriorly as the patient had a prior construct anteriorly. It did not appear as if he had developed fusion mass posteriorly, but I did not assess for any abnormal movement and as such, I suspected that he had fused at least anteriorly based on CT. Copious irrigation occurred throughout as did maximizing hemostasis. The posterolateral gutters at C5-C6 on the right and T1-T2 on the right were decorticated and arthrodesis was performed with local bone autograft obtained with same incision and allograft. We then did the same thing at C5, C6, C7, T1, and T2 on the left side. The posterolateral arthrodesis and placement of local bone autograft obtained from same incision and allograft to initiate arthrodesis posteriorly. Meticulous hemostasis occurred. The wound was then closed in anatomic layers following copious irrigation of sprinkling of vancomycin powder. The patient was then emerged from anesthesia. Job ID: [id number]
--- NOTE | 2019-05-16 11:31 | DIS ---
DATE OF ADMISSION: 05/11/2019 DATE OF DISCHARGE: 05/13/2019 This is Srikanth Berg PA-C dictating a report for Sylvain Tate MD. DISCHARGE DIAGNOSIS: Right hand weakness with cervical spinal stenosis. PLAN: Mr. Lara was direct admitted from our office to emergently undergo decompression posteriorly for cervical spinal stenosis and progressive worsening right hand weakness. The patient underwent right C6-C7 hemilaminotomy and right revision C7-T1 hemilaminotomy, foraminotomy with fusion of C5-T1. The patient's surgery was without complication and he recovered well overnight on the surgical floor. The patient noted immediate improvement in his right hand weakness, although he still had weakness in the right hand. This was significantly improved compared to his preoperative exam. The patient was very pleased with his outcome and met criteria for discharge and he was discharged home. Appropriate patient education and outpatient followups were provided to the patient and again at the time of discharge, he was doing well neurosurgically with improvement in his hand strength. Job ID: [id number]
== END 2019-05-13 11:50 | disposition home or self-care (01) | DRG 460 ==
LOC: SURG A 15:13
PROVIDERS: ADMIT Surgery; ATTEND Surgery
PROC: 0RG2071 Fusion of 2 or more Cervical Vertebral Joints with Autologous Tissue Substitute, Posterior Approach, Posterior Column, Open Approach (ICD-10-PCS; principal; 2019-05-12)
PROC: 0RG4071 Fusion of Cervicothoracic Vertebral Joint with Autologous Tissue Substitute, Posterior Approach, Posterior Column, Open Approach (ICD-10-PCS; 2019-05-12)
PROC: 0RG6071 Fusion of Thoracic Vertebral Joint with Autologous Tissue Substitute, Posterior Approach, Posterior Column, Open Approach (ICD-10-PCS; 2019-05-12)
DX: M48.02 Spinal stenosis, cervical region (principal); M54.12 Radiculopathy, cervical region; M62.81 Muscle weakness (generalized)
CPT/HCPCS: 36415; 76000; 80048; 85025; 85610; 85730; 93005; 93010; C1713; J0131; J0690; J1100; J1170; J2001; J2175; J2270; J2405; J2704; J3010; J3370; J3490; L0174

== ENCOUNTER 2019-07-20 12:51 | Outpatient (CLI) | payer BC ==
--- NOTE | 2019-07-20 13:15 | RAD ---
XR Cerv Sp Ap Lat STANDARD: 07/20/2019 12:00 AM CLINICAL INDICATION: Pain COMPARISON: 08/18/17 FINDINGS: No acute fracture. Anterior and posterior fusion of the cervical spine present, with ACDF spanning C5 -C7, and posterior fusion spanning C5-T2 level. Disc space prostheses are present at C5-6 and C6-7. No acute hardware complication identified. No significant subluxation. There is moderate degenerative change involving endplates cephalad to the sites of fusion, involving C3-4 and C4-5 levels. Multilevel facet osteoarthritis is present. IMPRESSION: Postoperative cervicothoracic spine, without acute hardware complication identified.
== END 2019-07-20 12:52 | disposition home or self-care (01) ==
LOC: TBSIIMAG 12:51
PROVIDERS: ATTEND Surgery
DX: M54.2 Cervicalgia (principal); Z98.890 Other specified postprocedural states
CPT/HCPCS: 72040

== ENCOUNTER 2020-05-21 14:32 | Outpatient (CLI) | payer BC ==
--- NOTE | 2020-05-21 15:19 | RAD ---
EXAM: XR Cervical Spine 4 View Min PROVIDED CLINICAL HISTORY: Cervical pain. History of prior surgery. Numbness right hand. COMPARISON: 12/03/2018 FINDINGS: Postoperative changes related to anterior cervical fusion are again noted with anterior plate and scr ews again transfixing the C5-6 and C6-7 levels with intradiscal prostheses at these levels. There has been interval postoperative changes related to posterior fusion with bipedicular screws in the C5 , T1, and T2 vertebral bodies and unilateral left-sided pedicular screws in C6 and C7 transfixed by interlocking rods. No hardware complication is seen. Laminectomy defects are seen posteriorly at the C4-5 and C5-C6 levels. There are osteophytes seen anteriorly at the C3-4 and C4-5 levels with narrowing of the intervertebra l disc spaces at these levels. Trace anterolisthesis of C7 on T1 is present. No fracture is identified. No abnormal translational motion is seen between flexion and extension views. Prevertebral soft tissues have a normal appearance. Calcified granuloma is again seen in the left mary g apex. IMPRESSION: 1. Extensive postoperative changes cervical spine in addition to degenerative changes in the upper ce rvical spine. 2. Slight anterolisthesis of C7 on T1.
--- NOTE | 2020-05-21 15:39 | RAD ---
LUMBAR SPINE 4 VIEWS: HISTORY: Low back pain. COMPARISON: 09/03/2015. FINDINGS/IMPRESSION: Mild degenerative changes are again seen most prominent at L5-S1 level. No change in alignment as no thai on flexion or extension. There are vacuum disk phenomenon as noted at L5-S1 which was not defini tely seen on the previous exam. POS: OFF
== END 2020-05-21 14:33 | disposition home or self-care (01) ==
LOC: BICRAD 14:32
PROVIDERS: ATTEND Nurse Practitioner Family
DX: M54.16 Radiculopathy, lumbar region (principal); M54.2 Cervicalgia; M47.817 Spondylosis without myelopathy or radiculopathy, lumbosacral region; M47.812 Spondylosis without myelopathy or radiculopathy, cervical region; M43.13 Spondylolisthesis, cervicothoracic region; Z98.1 Arthrodesis status
CPT/HCPCS: 72050; 72110

== ENCOUNTER 2020-07-31 07:00 | Outpatient (CLI) | payer BC ==
[2020-07-31 14:53] LABS: #Eosinphils 0.1 10x3/uL (0.0-0.5); #Monocytes 0.7 10x3/uL (0.0-1.1); #Neutrophils 3.6 10x3/uL (1.5-8.4); %Basophils 0.6 % (0.0-2.0); %Eosinophils 1.7 % (0.0-6.0); %Lymphocytes 36.4 % (18.0-47.0); %Neutrophils 50.6 % (40.0-75.0); Hemoglobin 15.3 g/dL (14.0-18.0); Mean Corpuscular HGB CONC 33.8 G/DL (32.0-36.0); Mean Corpuscular Hemoglobin 31.2 PG (27.0-33.0); Mean Corpuscular Volume 92.1 fl (80.0-100.0); Mean Platelet Volume 9.9 fl (7.4-10.4); Platelet Count 270 10x3/uL (130-400); RBC Distribution Width 13.2 % (11.5-14.5); Red Blood Cell (RBC) Count 4.91 10x6/uL (4.40-5.80); White Blood Cell (WBC) Count 7.1 10x3/uL (4.5-11.0)
[2020-07-31 15:34] LABS: Bilirubin Neg (Negative); Blood, Urine 10 (Negative); Glucose, Urine (Dipstick) Normal (Negative); Ketone, Urine 5 mg/dL (Negative); Leukocyte 25 (Negative); Nitrite Negative (Negative); Protein, Urine (Dipstick) 15 mg/dl (Neg-Trace); Specific Gravity, Urine 1.005 (1.002-1.036)
[2020-07-31 15:53] LABS: Clarity Hazy (Clear)
[2020-07-31 15:55] LABS: Bacteria/HPF None Seen HPF (None Seen); RBC/HPF 0-3 HPF (0-3); Squamous Epithelial None Seen HPF (0-3); WBC/HPF 0-3 HPF (0-3)
[2020-08-01 03:03] LABS: SARS-CoV-2 MS2 Positive; SARS-CoV-2 N Gene Negative; SARS-CoV-2 S Gene Negative; SARS-CoV-2 by NAA Not Detected (NotDetected); SARS-CoV-2 orf1ab Negative
== END 2020-07-31 07:01 | disposition home or self-care (01) ==
LOC: LABBT 07:00
PROVIDERS: ATTEND Orthopaedic Surgery Hand Surgery
DX: Z01.812 Encounter for preprocedural laboratory examination (principal); S56.411A Strain of extensor muscle, fascia and tendon of right index finger at forearm level, initial encounter; G56.31 Lesion of radial nerve, right upper limb; Z20.828 Contact with and (suspected) exposure to other viral communicable diseases
CPT/HCPCS: 81001; 85025; 87635; U0003

== ENCOUNTER 2020-08-03 05:37 | Day surgery (SDC) | payer BC ==
[2020-08-02 11:43] VITALS: BMI 25.0
[2020-08-03] MEDS ORDERED: Midazolam HCl 2 mg/2 ml Vial ONE (06:19)
[2020-08-03] MEDS ORDERED: Fentanyl 100 MCG/2 ML VIAL ONE ×2 (06:20→06:25)
[2020-08-03] MEDS ORDERED: Betamet Acet/Betamet Na Ph 30 MG/5 ML VIAL ONE (06:21)
[2020-08-03] MEDS ORDERED: Bupivacaine PF 0.5% 30 ML VIAL ONE (06:21)
[2020-08-03] MEDS ORDERED: Bacitracin Zinc Ointment 30 gm TUBE ONE (06:21)
[2020-08-03] MEDS ORDERED: Sodium Chloride 0.9% 10 ML ONE (06:21)
[2020-08-03 07:28] LABS: Anion Gap 18 mmol/L (10-20); BUN (Urea Nitrogen) 6 mg/dL (8.9-20.6); Calc. Creatinine Clearance 129 mL/min (70-130); Calcium 8.5 mg/dL (7.8-10.44); Carbon Dioxide 23 mmol/L (22-29); Chloride 91 mmol/L (98-107); Glucose 90 mg/dL (70-105); Potassium 3.6 mmol/L (3.5-5.1); Sodium 128 mmol/L (136-145)
[2020-08-03] MEDS ORDERED: Ketorolac Tromethamine 30 MG/ML VIAL ONE ×2 (09:59→10:28)
[2020-08-03] MEDS ORDERED: ePHEDrine 50 MG/ML VIAL ONE (10:28)
[2020-08-03] MEDS ORDERED: Bupivacaine HCl 0.5%/Epinephrine 1:200,000/PF 30 ml Vial ONE (10:28)
[2020-08-03] MEDS ORDERED: PROPOFOL 200 MG/20 ML VIAL ONE (10:28)
[2020-08-03] MEDS ORDERED: Lidocaine 1% PF 5 ML VIAL ONE (10:28)
[2020-08-03] MEDS ORDERED: Dexamethasone 20 MG/5 ML VIAL ONE (10:28)
[2020-08-03] MEDS ORDERED: Ondansetron PF 4 MG/2 ML Vial ONE (10:28)
--- NOTE | 2020-08-06 13:28 | OP ---
DATE OF PROCEDURE: 08/03/2020 PREOPERATIVE DIAGNOSES: Right hand residual weakness, extension of index finger after radial nerve palsy. POSTOPERATIVE DIAGNOSES: Right hand residual weakness, extension of index finger after radial nerve palsy. PROCEDURE PERFORMED: Transfer, flexor tendon from the flexor digitorum superficialis of the right middle finger to the dorsal right hand and index finger to achieve index finger extension. INDICATIONS: As listed above radial nerve palsy, resolving except for this digit extension. Patient may have only 1 tendon here to explain that and that tendon did not respond to previous nerve work. DESCRIPTION OF PROCEDURE: After successful general endotracheal anesthesia, the limb was prepped and draped. We had the areas previously marked for to retinaculum for the index finger. With the tourniquet deflated, we outlined all the incisions to include the palmar incision back to the A2 mae, the primary incision from the palmar to the dorsum to bring the interosseous tendon through . We then developed the flexor digitorum superficialis tendon, noticed that the flexor digitorum profundus went deep to this and was intact, so the finger remained bendable even with this tendon harvested. We then harvested the entire tendon, and brought it back into the wound, and we were able to secure it with a Santa Claus suture for passage. We then outlined incision of the dorsum. We inspected all the tendons for repair present but we were able to obtain the structure. Then, we passed a Bridgett clamp followed by tendon passing instrument through the osseous membrane to obtain the flexor digitorum superficialis, and brought it through the interosseous membrane for later transfer. We then harvested , and using a Ronald weave, the patient had no evidence of undue tension, but we performed the weave at the index finger MP joint and PIP joint and the MP joint hyperextend to 15 degrees. When we finished, the finger was in neutral at rest. We then cut the excess tendon and continued with suture of 4-0 Prolene tendon to tendon. Then tested it with acute pull before we prepared to close the wounds. All wounds at palmar and dorsal were closed with a running 4-0 Monocryl undyed and then 4-0 nylon proximal to the wrist and 5-0 nylon distal. The patient left the operating room without evidence of anesthetic or operative complication. Job ID: [id number]
== END 2020-08-03 11:40 | disposition home or self-care (01) ==
LOC: SDC 05:37
PROVIDERS: ATTEND Orthopaedic Surgery Hand Surgery
PROC: 0LX50ZZ Transfer Right Lower Arm and Wrist Tendon, Open Approach (ICD-10-PCS; principal; 2020-08-03)
PROC: 3E0T3BZ Introduction of Anesthetic Agent into Peripheral Nerves and Plexi, Percutaneous Approach (ICD-10-PCS; principal; 2020-08-03)
DX: G56.31 Lesion of radial nerve, right upper limb (principal); M67.843 Other specified disorders of tendon, right hand; G89.18 Other acute postprocedural pain; I10 Essential (primary) hypertension; K21.9 Gastro-esophageal reflux disease without esophagitis; Z79.899 Other long term (current) drug therapy; Z88.8 Allergy status to other drugs, medicaments and biological substances; Z98.1 Arthrodesis status
CPT/HCPCS: 80048; J0702; J1100; J1885; J2250; J2405; J2704; J3010; J3490; S0020

== ENCOUNTER 2024-02-16 08:32 | Inpatient (IN) | payer BC ==
[2024-01-20 14:41] VITALS: BMI 25.8
[2024-02-16] MEDS ORDERED: Ondansetron PF 4 MG/2 ML Vial ONE ×2 (09:23→17:56)
[2024-02-16] MEDS ORDERED: Lidocaine 1% PF 5 ML VIAL ONE (09:23)
[2024-02-16] MEDS ORDERED: fentaNYL PF 100 MCG/2 ML SYRINGE ONE (09:23)
[2024-02-16] MEDS ORDERED: PROPOFOL 20 ML ONE (09:24)
[2024-02-16] MEDS ORDERED: Midazolam HCl 2 mg/2 ml Vial ONE (09:24)
[2024-02-16] MEDS ORDERED: SUGAMMADEX SODIUM 200 MG/2 ML VIAL ONE (09:25)
[2024-02-16] MEDS ORDERED: Rocuronium Bromide 10 MG/ML (10ML VIAL) ONE ×3 (09:25→13:43)
[2024-02-16 10:19] LABS: #Basophils Less than 0.03 10x3/uL (0.0-0.2); %Basophils 0.3 % (0.0-1.0); %Eosinophils 1.2 % (0.0-10.0); %Lymphocytes 23.5 % (21.0-51.0); %Neutrophils 61.3 % (42.0-75.0); Hematocrit 41.6 % (42.0-52.0); Mean Corpuscular HGB CONC 36.1 g/dL (32.0-36.0); Mean Corpuscular Hemoglobin 32.3 pg (27.0-31.0); Mean Corpuscular Volume 89.5 fL (78.0-98.0); Mean Platelet Volume 9.1 fL (7.4-10.4); Platelet Count 228 10x3/uL (130-400); RBC Distribution Width 12.3 % (11.5-14.5); Red Blood Cell (RBC) Count 4.65 mill/uL (4.70-6.10)
[2024-02-16 10:34] LABS: PTT 27.6 sec (22.9-36.1); Prothrombin Time 13.6 sec (12.0-14.7)
[2024-02-16 10:38] LABS: Anion Gap 23 mmol/L (10-20); BUN (Urea Nitrogen) 9 mg/dL (8.4-25.7); Calc. Creatinine Clearance 116 mL/min (70-130); Calcium 10.4 mg/dL (7.8-10.44); Carbon Dioxide 20 mmol/L (22-29); Chloride 91 mmol/L (98-107); Estimated GFR 107; Glucose 94 mg/dL (70-105); Potassium 3.9 mmol/L (3.5-5.1); Sodium 130 mmol/L (136-145)
[2024-02-16] MEDS ORDERED: CEFAZOLIN 2 GM VIAL ONE (10:59)
[2024-02-16] MEDS ORDERED: Sodium Chloride 0.9% 100 ML ONE (10:59)
[2024-02-16] MEDS ORDERED: ePHEDrine Sulfate 50 MG/10 ML VIAL ONE ×2 (11:26→14:13)
[2024-02-16] MEDS ORDERED: PHENYLEPHRINE-NS 100 MCG/ML 10 ML SYRINGE ONE ×4 (11:26→14:13)
[2024-02-16] MEDS ORDERED: HYDROmorphone 2 MG/ML VIAL ONE (11:37)
[2024-02-16] MEDS ORDERED: Glycopyrrolate 0.2 MG/ML 5 ML SYRINGE ONE (11:41)
[2024-02-16] MEDS ORDERED: Thrombin 5000 UNITS/5 ML VIAL ONE (13:27)
[2024-02-16] MEDS ORDERED: Vancomycin 1 GM VIAL ONE (14:50)
[2024-02-16] MEDS ORDERED: Ondansetron PF 4 MG/2 ML Vial IVP PRN ×2 (15:59→16:00)
[2024-02-16] MEDS ORDERED: Milk Of Magnesia 30 ML UDCUP PO PRN (15:59)
[2024-02-16] MEDS ORDERED: Acetaminophen 325 MG TAB PO PRN (15:59)
[2024-02-16] MEDS ORDERED: diphenhydrAMINE 25 MG CAP PO PRN ×2 (15:59→16:00)
[2024-02-16] MEDS ORDERED: diphenhydrAMINE 50 MG/ML VIAL IVP PRN (16:00)
[2024-02-16] MEDS ORDERED: Promethazine HCl 25 MG/ML VIAL IM PRN (16:00)
[2024-02-16] MEDS ORDERED: hydrALAZINE 20 MG/ML VIAL SLOW IVP PRN (16:00)
[2024-02-16] MEDS ORDERED: diphenhydrAMINE 50 MG/ML VIAL IM PRN (16:00)
[2024-02-16] MEDS ORDERED: Communication Order-Pharmacy FS SCH (16:00)
[2024-02-16] MEDS ORDERED: Naloxone HCl 0.4 mg/ml Vial IV PRN (16:00)
[2024-02-16] MEDS ORDERED: HYDROmorphone/PF 10 MG in Sodium Chloride 0.9% 99 ML IV PRN (16:00)
[2024-02-16] MEDS ORDERED: Cyclobenzaprine 10 MG TAB PO PRN (16:04)
[2024-02-16] MEDS ORDERED: fentaNYL 50 mcg/mL 1 mL Vial ONE (16:46)
[2024-02-16] MEDS: Sodium Chloride 0.9% 1,000 ML IV SCH (20:53)
[2024-02-16] MEDS: CEFAZOLIN 2 GM in Sodium Chloride 0.9% 100 ML IVPB SCH (20:54)
[2024-02-17 05:11] LABS: Anion Gap 13 mmol/L (10-20); BUN (Urea Nitrogen) 7 mg/dL (8.4-25.7); Calc. Creatinine Clearance 124 mL/min (70-130); Calcium 8.8 mg/dL (7.8-10.44); Carbon Dioxide 25 mmol/L (22-29); Chloride 93 mmol/L (98-107); Estimated GFR 109; Glucose 202 mg/dL (70-105); Potassium 4.6 mmol/L (3.5-5.1); Sodium 126 mmol/L (136-145)
[2024-02-17 06:55] LABS: #Basophils Less than 0.03 10x3/uL (0.0-0.2); #Eosinphils Less than 0.03 10x3/uL (0.0-0.7); %Lymphocytes 9.4 % (21.0-51.0); %Monocytes 7.1 % (0.0-10.0); %Neutrophils 83.1 % (42.0-75.0); Hematocrit 31.4 % (42.0-52.0); Hemoglobin 11.2 g/dL (14.0-18.0); Mean Corpuscular HGB CONC 35.7 g/dL (32.0-36.0); Mean Corpuscular Hemoglobin 32.1 pg (27.0-31.0); Mean Platelet Volume 9.4 fL (7.4-10.4); Platelet Count 184 10x3/uL (130-400); RBC Distribution Width 12.3 % (11.5-14.5); Red Blood Cell (RBC) Count 3.49 mill/uL (4.70-6.10)
[2024-02-17] MEDS ORDERED: Hydrochlorothiazide 25 MG TAB PO SCH (09:00)
[2024-02-17] MEDS: Pantoprazole DR 40 MG TAB PO SCH (09:46)
[2024-02-17] MEDS: Lisinopril 20 MG TAB PO SCH (09:54)
[2024-02-17] MEDS: Amlodipine 10 MG TAB PO SCH (09:59)
[2024-02-17] MEDS: Propranolol HCl LA 80 MG CAP PO SCH (11:41)
[2024-02-17] MEDS ORDERED: HYDROcodone/Acetaminophen 10/325 mg Tablet PO PRN (17:34)
[2024-02-17] MEDS ORDERED: fentaNYL 50 mcg/mL 1 mL Vial SLOW IVP PRN (17:36)
[2024-02-17] MEDS ORDERED: Diazepam 5 MG TAB PO PRN (18:19)
[2024-02-17] MEDS: Ketorolac Tromethamine 30 MG (1 mL) VIAL IVP SCH (19:28)
[2024-02-17] MEDS: HYDROcodone/Acetaminophen 10/325 mg Tablet PO PRN (21:56)
[2024-02-18 06:10] LABS: Anion Gap 13 mmol/L (10-20); BUN (Urea Nitrogen) 4 mg/dL (8.4-25.7); Calc. Creatinine Clearance 122 mL/min (70-130); Calcium 9.1 mg/dL (7.8-10.44); Carbon Dioxide 26 mmol/L (22-29); Chloride 101 mmol/L (98-107); Estimated GFR 108; Glucose 118 mg/dL (70-105); Potassium 3.7 mmol/L (3.5-5.1); Sodium 136 mmol/L (136-145)
[2024-02-18 07:51] VITALS: TEMP 99.7
[2024-02-18 08:42] VITALS: BP 114/72
== END 2024-02-18 10:49 | disposition home or self-care (01) | DRG 460 ==
LOC: SDC 08:32 → MSONC 15:58 → OBSVTOIN 02-17 09:54
PROVIDERS: ADMIT Surgery; ATTEND Surgery
PROC: 0SG30AJ Fusion of Lumbosacral Joint with Interbody Fusion Device, Posterior Approach, Anterior Column, Open Approach (ICD-10-PCS; principal; 2024-02-16)
PROC: 01NB0ZZ Release Lumbar Nerve, Open Approach (ICD-10-PCS; 2024-02-16)
PROC: 01NR0ZZ Release Sacral Nerve, Open Approach (ICD-10-PCS; 2024-02-16)
PROC: 0ST40ZZ Resection of Lumbosacral Disc, Open Approach (ICD-10-PCS; 2024-02-16)
PROC: 0QB20ZZ Excision of Right Pelvic Bone, Open Approach (ICD-10-PCS; 2024-02-16)
PROC: 3E033XZ Introduction of Vasopressor into Peripheral Vein, Percutaneous Approach (ICD-10-PCS; 2024-02-16)
DX: M48.07 Spinal stenosis, lumbosacral region (principal); M54.17 Radiculopathy, lumbosacral region
CPT/HCPCS: 36415; 80048; 85025; 85610; 85730; 86850; 86900; 86901; 93005; 93010; A6258; C1713; C1889; J1170; J1885; J2250; J2405; J2704; J3010; J3370; J3490; J7050